=== PATIENT | male | born 1980 | race Caucasian/White ===

== ENCOUNTER 2020-06-15 20:18 | Emergency (ER) | payer OTHER | END 2020-06-15 21:28 | LOC: ED 20:18 | DX: Z02.89 Encounter for other administrative examinations (principal) ==

== ENCOUNTER 2020-06-15 20:18 | Emergency (ER) | payer OTHER, MEDICAID ==
[~2020-06-15] VITALS: Ht 165.1 cm; Wt 95.3 kg
[2020-06-15 20:23] VITALS: Ht 165.1 cm; Wt 95.3 kg
[2020-06-15 21:28] VITALS: BP 140/87
== END 2020-06-15 21:28 ==
LOC: ED 20:18
DX: S08.0XXA Avulsion of scalp, initial encounter (principal); S00.83XA Contusion of other part of head, initial encounter; V49.9XXA Car occupant (driver) (passenger) injured in unspecified traffic accident, initial encounter; Y93.I9 Activity, other involving external motion; Y92.413 State road as the place of occurrence of the external cause; Y99.8 Other external cause status
CPT/HCPCS: 90715